=== PATIENT | female | born 1970 | race Caucasian/White ===

== ENCOUNTER 2021-08-18 20:10 | Emergency (ER) | payer OTHER, SELFPAY ==
--- NOTE | ~2021-08-18 | XR_ITS ---
XR knee LT 3V 08/18/2021 20:57 Indication: Left knee pain after fall Procedure: 3 views left knee Comparison: No prior studies for comparison. Findings: There is a comminuted proximal tibial fracture involving the medial and lateral tibial plat eau with depression of the medial tibial plateau anteriorly. Moderate soft tissue swelling. There is a probable lipohemarthrosis. No foreign body. Impression: 1: Comminuted proximal tibial fracture extending to involve both the medial lateral tibial plateau wi th depression of the medial tibial plateau anteriorly. Reviewed, dictated and finalized at location A. Impression: 1: Comminuted proximal tibial fracture extending to involve both the medial lat eral tibial plateau with depression of the medial tibial plateau anteriorly.
[2021-08-18 20:21] VITALS: BP 120/88; PULSE 94; RESP 20; TEMP 36.2; O2SAT 99
--- NOTE | 2021-08-18 21:34 | ED.LOWEXIN ---
HPI - Extremity Injury (Lower) General Chief Complaint: Extremity Injury, Lower Stated Complaint: fall, left knee pain Time Seen by Provider: 08/18/21 20:39 History of Present Illness HPI Narrative: 51-year-old female presents the emergency room for evaluation of right knee pain. Patient states that she was walking through the yard, stepped on the ground very hard, hearing a crunching sound. Patient states that she immediately was unable to bear weight on the affected extremity. Related Data Allergies Allergy/AdvReac Type Severity Reaction Status Date / Time codeine Allergy Severe Rash Verified 08/18/21 21:07 Review of Systems Review of Systems: CONSTITUTIONAL: Denies fever, chills, or sweats. EYES: Denies visual changes, redness, or discharge. ENT: Denies rhinorrhea, congestion, sore throat, or otalgia. CARDIOVASCULAR: Denies chest pain, palpitations, or edema. RESPIRATORY: Denies cough or dyspnea. GASTROINTESTINAL: Denies abdominal pain, nausea, vomiting, or diarrhea. GENITOURINARY: Denies dysuria or hematuria. SKIN: Denies rash or itching. MUSCULOSKELETAL: Reports right knee pain NEUROLOGIC: Denies headache, numbness, dizziness, or weakness. PSYCHIATRIC: Denies anxiety or depression. Exam Narrative: GENERAL: Well-appearing, well-nourished, and in no acute distress. HEAD: Normocephalic, atraumatic. EYES: PERRLA and EOMI. CHEST: Clear to auscultation. No respiratory distress. No wheezes rales or rhonchi HEART: Regular rate and rhythm. No murmur heard. Normal peripheral pulses. ABDOMEN: Soft, nontender, nondistended, normal active bowel sounds. EXTREMITIES: Right knee: Soft tissue swelling and tenderness to the proximal aspect of the tibia, acute bony abnormality noted, unable to evaluate for joint laxity or range of motion due to pain swelling, neurovascular is intact distally SKIN: Warm, dry, no rash. NEURO: No focal deficits. Alert and oriented x3. PSYCH: Normal mood and affect. Course Course Emergency Course: 2154: Discussed case with at [facility] emergency room, he is willing to accept transfer. Vital Signs Vital signs: Vital Signs Temperature 36.2 C L 08/18/21 20:21 Pulse Rate 94 08/18/21 20:21 Respiratory Rate 20 08/18/21 20:21 Blood Pressure 120/88 08/18/21 20:21 Pulse Oximetry 99 08/18/21 20:21 Oxygen Delivery Room Air 08/18/21 20:21 Temperature 36.2 C L 08/18/21 20:21 Pulse Rate 94 08/18/21 20:21 Respiratory Rate 20 08/18/21 20:21 Blood Pressure 120/88 08/18/21 20:21 Pulse Oximetry 99 08/18/21 20:21 Oxygen Delivery Room Air 08/18/21 20:21 MDM - Extremity Injury (Lower) MDM Narrative Medical decision making narrative: 51-year-old found to have a right tibial plateau fracture on x-ray. Patient is otherwise well-appearing, hemodynamically stable and shows no evidence of neurovascular injury or compartment syndrome at this time. Patient was placed in a knee immobilizer and will be transferred via EMS to [facility] emergency room. Imaging Data Radiologist's impression: Impressions Knee X-Ray 08/18/21 21:01 Impression: 1: Comminuted proximal tibial fracture extending to involve both the medial lateral tibial plateau with depression of the medial tibial plateau anteriorly. Discharge Plan Discharge Clinical Impression: Closed fracture of right tibial plateau Patient Disposition: Acute Care Hospital Condition: Stable Follow-up/Referrals: PHYSICIAN NOT ON STAFF,NONSTAFF [Primary Care Provider] - Time of Disposition: 21:56
[2021-08-18] MEDS: ONDANSETRON INJ 4 MG/2 ML VIAL IV PUSH (22:04)
[2021-08-18] MEDS: MORPHINE SULFATE (*CRX) 4 MG/ML INJ IV PUSH (22:06)
--- NOTE | 2021-08-18 22:13 | PC.NURSE ---
Transfer paper signed per pt. Preparing to place knee immobilizer for pain control. EMS enroute.
[2021-08-18 22:31] VITALS: BP 130/86; PULSE 71; RESP 17; O2SAT 98
--- NOTE | 2021-08-18 22:34 | PC.NURSE ---
Report to Edvin from [facility]. Preparing to transport BLS.
== END 2021-08-18 22:41 | disposition short-term general hospital (02) ==
PROVIDERS: Emergency Provider Nurse Practitioner Family
DX: S82.142A Displaced bicondylar fracture of left tibia, initial encounter for closed fracture (principal); W01.0XXA Fall on same level from slipping, tripping and stumbling without subsequent striking against object, initial encounter
CPT/HCPCS: 73562; 96374; 96375; 99285; J2270; J2405